=== PATIENT | female | born 2000 | race Caucasian/White ===

== ENCOUNTER → 2023-09-17 | Outpatient (CLI) | payer OTHER, SELFPAY ==
--- NOTE | 2023-09-17 15:20 | RAD_ITS ---
STUDY: X-RAY - LEFT FOOT CLINICAL: Female, 23 years old. Pain TECHNIQUE: 3 view(s) of the foot. COMPARISON: None. FINDINGS: Normal talus, calcaneus, and tarsal bones. Normal visualized subtalar, talonavicular, calcaneocuboid, tarsal and tarsometatarsal articulations. Normal metatarsi. Normal metatarsophalangeal joint of the great toe. There is a bipartite tibial sesamoid. Normal interphalangeal joint of the great toe. Normal phalanges of the great toe. Normal second through fifth metatarsophalangeal joints. Normal interphalangeal joints and phalanges of the lesser toes. Dorsal soft tissue swelling. RAD/Foot min 3 Views IMPRESSION: No acute abnormality is seen Dorsal soft tissue swelling. Electronically Signed: Laith Villanueva MD at 15:45 EDT ,
== END | disposition home or self-care (01) ==
LOC: MTRAD 15:17
PROVIDERS: Referring Provider Physician Assistant; Visit Provider Physician Assistant
DX: M79.672 Pain in left foot (principal)
CPT/HCPCS: 73630

== ENCOUNTER 2025-03-30 15:28 | Outpatient (CLI) | payer BC, SELFPAY ==
[2025-03-30 18:00] LABS: Hematocrit 39.7 % (37-47); Hemoglobin 13.1 g/dL (12.0-15.0); Immature Granulocytes Count 0.040 X10^3/uL (0.0-0.0); Mean Corp Hgb Conc 33.0 g/dL (32-36); Mean Corpuscular Volume 83.4 fL (81-99); Mean Platelet Vol. 9.6 fl (6.2-12.0); NRBC Flagged by Analyzer 0 % (0-5); Platelet Count 407 K/mm3 (150-450); RBC Distribution Width CV 13.1 % (11.6-14.6); RBC Distribution Width SD 39.7 fl (35.1-43.9); Red Blood Count 4.76 M/mm3 (4.2-5.4); White Blood Count 9.3 K/mm3 (4.4-11.0)
[2025-03-30 18:34] LABS: AST(SGOT) 16 U/L (<=31); Alanine Aminotransfer ALT/SGPT 18 U/L (<=34); Albumin, Serum 4.4 g/dL (3.5-5.0); Alkaline Phosphatase 56 U/L (35-104); Anion Gap 11 (5-15); BUN 15 mg/dL (4-19); BUN/Creat Ratio 16.5 RATIO (10-20); Calcium,Total 9.7 mg/dL (7.6-11.0); Carbon Dioxide 25.3 mmol/L (21.0-32.0); Chloride 105 mmol/L (98-108); Cholesterol 224 mg/dL (<=190); Globulin 2.9 g/dL (2.2-4.2); Glucose 92 mg/dL (70-99); Low Density Lipoprotein Calc. 125 mg/dL; Potassium 3.8 mmol/L (3.3-5.1); Triglycerides 280 mg/dL; Very Low Density Lipoprotein 56 mg/dL (5-40); Vitamin D,25 Hydroxy 13.4 ng/mL (30-100); cholesterol:hdl ratio screen 4.49
--- OUTSIDE RECORDS SUMMARY | 2025-03-30 19:12 | XMS RPT_ITS | CCD ---
Author Organization [facility] Inform ion Partnership ADULT MANAGER [facility] Care Team Providers Care Food Preparation Worker Name Role Phone FINA GOMEZ Attending Unavailable FINA GOMEZ Attending Unavailable FINA GOMEZ Referring Unavailable Roof CONCRETE BLOCK PLANT SUPERVISOR, CONCRETE BLOCK PLANT SUPERVISOR-C Allan eMndoza Attending Provider DELL Young Attending Provider Robbin Young Attending Unavailable Roof CONCRETE BLOCK PLANT SUPERVISORAllan Attending Unavailable Robbin Young Referring Unavailable Care Physician, No Primary Primary Care Unava ilable Robbin Young Attending Unavailable Care Physician, No Primary Primary Care Unava ilable Care Physician, No Primary Referring Unava ilable Robbin Young Attending Unavailable Allergies Allergy Classification Reported Allergen(s) Allergy Type Date of Onset Reaction(s) Facility (1 source) Amoxicillin Drug Allergy 09-17-2023 Nausea [facility] (1 source) Minocycline Drug Allergy 09-17-2023 Swelling [facility] (1 source) Amoxicillin Drug Allergy 09-17-2023 [facility] Repository (1 source) Minocycline Drug Allergy 09-17-2023 [facility] Repository Medications Current Medications Medication Drug Class(es) Dates Sig (Normalized) Sig (Original) cyclobenzaprine hydrochloride 5 mg oral tablet (1 source) Muscle Relaxant Start: 07-16-2023 take 10 mg by mouth three times daily as needed Cyclobenzaprine Active 10 MG PO THREE TIMES A DAY July 16, 2023 1:00am May take up to 10mg PO TID PRN Problems Active Problems Problem Classification Problem Date Documented Da te Episodic/Chronic Other connective tissue disease (1 source) Increased muscle tone; Translations: [Other specified disorders of muscle] 07-16-2023 Episodic Other connective tissue disease (1 source) Pain in left foot; Translations: [Pain in left foot] Onset: 10-24-2023 Episodic Residual codes; unclassified (1 source) Pain, unspecified; Translations: [Pain, unspecified] Onset: 10-05-2023 Episodic Sprains and strains (3 sources) Sprain of left foot; Translations: [Unspecified sprain of left foot, initial encounter] Onset: 11-01-2023 09-17-2023 Episodic Unclassified (1 source) Contact with and (suspected) exposure to covid-19; Translations: [Contact with and (suspected) exposure to covid-19] Onset: 01-08-2021 Past or Other Problems Problem Classification Problem Date Documented Da te Episodic/Chronic Other connective tissue disease (2 sources) Other specified disorders of muscle; Translations: [Unspecified disorder of muscle, ligament, and fascia] Onset: 07-16-2023 07-16-2023 Episodic Other lower respiratory disease (1 source) Cough; Translations: [Cough] Onset: 01-08-2021 Episodic Results Test Name Value Interpretation Reference Range Facility Virtual Office Visiton 09-23 Virtual Office Visit [facility] [address] [place] [address] OFFICE VISIT Date of Service: 09/24/23 MR#: [id number] Acct: [id number] Patient: DARIEN JIMÉNEZ Rep #: [id number] : 2000 Provider: DELL Modi Age/Sex: 23/F Location: [facility] Status: Signed Intake Vital Signs 07/16/23 06:41 Height 5 ft Intake Visit Reasons: BWC F/U FOOT INJURY Chief Complaint: WC left foot Allergies minocycline Adverse Reaction (Severe, Verified 09/17/23 15:06) Swelling amoxicillin Adverse Reaction (Intermediate, Verified 09/17/23 15:06) Nausea PFSH Medical History (Updated 09/17/23 @ 15:12 by Robbin SHARPE PA) Sprain of left foot HPI HPI Chief Complaint: WC left foot Details: Patient was informed that today's visit charges, even if billed to insurance may still be the patient's responsibility to pay. DARIEN JIMÉNEZ, is a 23 F who presents to the office today for recheck, with patient noting she is essentially symptom-free and wished to be released without restrictions at this time. Exam Details: Details:: Exam was limited due to phone visit with no video. Coding Level of Care Code Level 1 Telephone Diagnoses Sprain of left foot S93.602A Assessment and Plan Assessment and Plan (1) Sprain of left foot: Status: Acute Plan: Released without restrictions as noted on today's [employer] 14. Follow-up in our clinic on an as-needed basis only. Patient states acknowledging understanding all the above. This note was generated with Powervationation software. It may contain incorrect words, spelling, and punctuation that were not noted in checking the note before signing. 09/24/23 1504 Date Robbin SHARPE Cosigner Signature: Date (if applicable) CC: Normal [facility] Foot min 3 Viewson 4 Foot min 3 Views [facility] [address] [place] [address] Foot min 3 Views MR#: [id number] Acct: [id number] Name: DARIEN JIMÉNEZ Rep #: [id number] : 2000 F 23 From: Laith tran MD PCP: Care Physician,No Primary Status: REG CLI Study: Foot min 3 Views Date of Exam: 09/17/23 Exam# [id number] Ordering Dr: Robbin Chaudhari [id number] STUDY: X-RAY - LEFT FOOT CLINICAL: Female, 23 years old. Pain TECHNIQUE: 3 view(s) of the foot. COMPARISON: None. FINDINGS: Normal talus, calcaneus, and tarsal bones. Normal visualized subtalar, talonavicular, calcaneocuboid, tarsal and tarsometatarsal articulations. Normal metatarsi. Normal metatarsophalangeal joint of the great toe. There is a bipartite tibial sesamoid. Normal interphalangeal joint of the great toe. Normal phalanges of the great toe. Normal second through fifth metatarsophalangeal joints. Normal interphalangeal joints and phalanges of the lesser toes. Dorsal soft tissue swelling. RAD/Foot min 3 Views IMPRESSION: No acute abnormality is seen Dorsal soft tissue swelling. Electronically Signed: Laith Villanueva MD at 15:45 EDT Reading Location ID and State: [facility] / [place] , Service support , CC: No Primary Care Physician; DELL Modi Tipple Oiler: Signed Normal [facility] Urgent Care Visit Reporton 0 09-17-2023 Urgent Care Visit Report [facility] [address], [address] [place] [address] OFFICE VISIT Date of Service: 09/17/23 MR#: [id number] Acct: [id number] Name: DARIEN JIMÉNEZ Rep #: [id number] : 2000 Provider: DELL Modi Age/Sex: 23/F Location: [facility] Status: Signed Intake Vital Signs 07/16/23 06:41 09/17/23 15:05 Height 5 ft Weight: 194 lb BMI 37.8 BP 118/76 108/72 Blood Pressure Location Lt brachial Lt brachial Position Sitting Sitting Respiration 12 16 Pulse 124 H 94 Pulse Source Monitor NIBP Temp 98.3 F 98.5 F Temp Source Temporal Temporal Pulse Oximetry (%) 100 100 Oxygen Delivery Method room air room air Intake Visit Reasons: L FOOT INJURY/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 Complaint: WC left foot Website Optimization Strategist Required: No Is patient in pain?: Yes Allergies minocycline Adverse Reaction (Severe, Verified 09/17/23 15:06) Swelling amoxicillin Adverse Reaction (Intermediate, Verified 09/17/23 15:06) Nausea Is last menstrual period known: No Post menopausal: No Patient : No [facility] Medical History (Updated 09/17/23 @ 15:12 by Robbin SHARPE, PA) Sprain of left foot HPI HPI Chief Complaint: WC left foot Details: DARIEN JIMÉNEZ, is a 23 F who presents to the office today for initial evaluation left foot dorsal pain status post work-related injury patient so states. Patient notes while at work tripping falling twisting left foot in the process on 09/09/2023, with prolonged walking only continuing to exacerbate moderate aching discomfort of the same. No left ankle complaints and no locking or giving way of the same. No etsf-arr-gsmlmmg products taken to assist. PMH NC. No other associated symptoms and no other alleviating/aggravating factors. ROS Const Constitutional: No other (As above) Exam Const General: cooperative, healthy appearing and no acute distress Orientation: alert, awake and oriented x3 Neck Neck: normal visual inspection, no lymphadenopathy, no meningeal signs and supple Resp Effort Inspection: normal respiratory effort and able to speak in complete sentences Cardio Rate: regular rate Pulses: radial pulses present Skin General: no rashes or lesions noted Neuro General: patient alert, patient awake, patient oriented x3 and gait normal Cognition: normal cognition Speech: speech normal Gait: normal gait Extrem Other: Left foot trace dorsal swelling appreciated Psych Appearance: grossly normal Mental Status: mental status grossly normal Mood: congruent mood Affect: normal affect Speech and Movement: speech and movement normal Attitude: cooperative Coding Level of Care Code Off vis,est,level 4 Diagnoses Sprain of left foot S93.602A Assessment and Plan Assessment and Plan (1) Sprain of left foot: Status: Acute Plan: Left foot radiographs taken today reveal no acute osseous pathology per my review, pending radiologist interpretation time patient discharged. No work restrictions per patient preference as noted on today's Synetiq 14. Rest, ice, elevate, Chapito wrap as dispensed/applied/instru cted today. Coea-gsj-tcewvdb ibuprofen as needed as instructed today. Follow-up in the now clinic in 1 week for reevaluation, sooner should symptoms only worsen or any other concerns develop; anticipate release then. Patient states acknowledging understanding all the above. This note was generated with Connectbright dictation software. It may contain incorrect words, spelling, and punctuation that were not noted in checking the note before signing. Orders: Orders Foot min 3 Views Today R52 - Pain, unspecified Clinical Quality Measures High Blood Pressure Screening/Follow Up High Blood Pressure follow-up Instructions: Recommended Blood Pressure Follow-Up Interventions: *Normal BP: No follow-up required for SBP < 120 mmHg and DBP < 80 mmHg: *Elevated BP: Patients with SBP of 120-129 mmHg and DBP < 80 mmHg: *Referral to Alternate/Primary Care Health Adjunct Art History Instructor OR * Follow-up with rescreen in 2 to 6 months AND recommend nonpharmacologic interventions * First Hypertensive BP Reading: Patients with one elevated reading of SBP >=130 mmHg OR DBP >= 80 mmHg: *Referral to Alternate/Primary Care Health Professional OR *Follow-up with rescreen in >1 day and < 4 weeks AND recommend nonpharmacologic interventions *Second Hypertensive BP Reading: *Second Hypertensive BP Reading:Patients with second elevated reading of SBP of 130-139 mmHg or DBP of 80-89 mmHg (and not SBP >=140 or DBP >=90): * Referral to Alternate/Primary Care Health Adjunct Art History Instructor OR *Nonpharmacological Intervention AND reassessment in 2-6 months AND an order for a laboratory test or ECG for hypertension *Second Hypertensive BP Reading: SBP >=140 or D (more content not included)... Normal [facility] Urgent Care Visit Reporton 0 07-16-2023 Urgent Care Visit Report [facility] [address], [address] [place] [address] OFFICE VISIT Date of Service: 07/16/23 MR#: [id number] Acct: [id number] Name: DARIEN JIMÉNEZ Rep #: [id number] : 2000 Provider: MARILEE cabrera Age/Sex: 22/F Location: [facility] Status: Signed Intake Vital Signs 07/16/23 06:41 07/16/23 06:50 Height 5 ft Weight: 194 lb BMI 37.8 BP 118/76 Blood Pressure Location Lt brachial Position Sitting Respiration 12 Pulse 124 H 86 Pulse Source Monitor Monitor Temp 98.3 F Temp Source Temporal Pulse Oximetry (%) 100 Oxygen Delivery Method room air Intake Visit Reasons: NECK STIFFNESS Allergies minocycline Adverse Reaction (Severe, Verified 07/16/23 06:42) Swelling amoxicillin Adverse Reaction (Intermediate, Verified 07/16/23 06:42) Nausea HPI HPI Details: DARIEN JIMÉNEZ, is a 22 F who presents to the office today for concerns regarding neck stiffness. This was noted this morning after reaching for her alarm clock. She heard something pop in her neck. She acknowledges a history of torticollis. She denies injury, recent infection, or starting new medications. ROS Const Constitutional: No chills, fatigue, fever(s) or weakness ENT ENT: Positive for neck pain Resp Respiratory: No shortness of breath Cardio Cardiology: No chest pain with exertion Gastro GI: No incontinent of stools Genitourinary-Female: No urinary incontinence Musc Musculoskeletal: Positive for limited range of motion, neck pain and stiffness (left neck); No back pain, muscle weakness, numbness, radiating pain into limb or tingling Neuro Neurology: No weakness, numbness or tingling Endo Endocrine: No fatigue Storm/Lymp Hematologic/Lymphatic: Positive for other (Denies cancer history or trauma. Denies IV drug use) Exam Const General: cooperative, healthy appearing, comfortable and no acute distress Chest Chest palpation inspection: normal inspection of the chest Resp Effort Inspection: normal respiratory effort, able to speak in complete sentences, symmetric chest movement, not labored, no retractions and no use of accessory muscles Auscultation: Bilateral: Clear to Auscultation Cardio Palpation: normal PMI Rate: regular rate Rhythm: regular rhythm Heart Sounds: S1 normal and S2 normal Musc Musculoskeletal: No joint tenderness, joint redness, joint warmth, decreased range of motion, spinal deformity or muscle weakness Cervical Spine: pain with cervical ROM, cervical ROM abnormal and other (pain when bending chin upwards and downwards along and neck flexion to left); No cervical ROM normal or Lhermitte's sign positive Neuro General: patient alert, patient awake and patient oriented x3 Coding Level of Care Code Off vis,new,level 3 Diagnoses Muscle tightness M62.89 Assessment and Plan Assessment and Plan (1) Muscle tightness: Status: Acute Plan: Her physical exam is encouraging. No red flags noted. Conservative management such as ibuprofen, Tylenol, rest, hydration, and heat were reviewed. Will add muscle relaxer to also assist at a low dose. She is not working today. Concerns for drowsiness reviewed. Concerning symptoms were reviewed with her in which she was asked to present to emergency monitor, return to office, or contact primary care provider for repeat evaluation. Medications: New cyclobenzaprine May take up to 10mg PO TID PRN 10 mg (2 x 5 mg) PO TID PRN 10 tabs 0RF muscle spasm 07/16/23 0655 Date Allan Dimitri CONCRETE BLOCK PLANT SUPERVISOR CONCRETE BLOCK PLANT SUPERVISOR-C Cosigner Signature: Date (if applicable) CC: Normal [facility] SARS-CoV, QL, PCRon 01-09-20 SARS-CoV, QL, PCR Not detected Normal Undetected [facility] Comment on above: Order Comment: Sympt omatic?->No Indications (select all that apply)->Asymptomatic - community/general population Was specimen collected by a [facility] steam flattener?->Yes NO KNOWN ALLERGIES Result Comment: Testing was performed using the Quidel Brooke Direct. Fact sheets for this Emergency Use Authorization (EUA) assay can be found at the following links: For Healthcare Providers: https://www.fda.gov/media/589612/download For Patients: https://www.fda.gov/media/732639/download Test Performed by: [facility],[address] [place] [address], Pneudraulic Systems Mechanic: Vikas Gil D.O.; CLIA#: [id number] Performed By: #### L [id number] #### [facility] [address] [place] [address] C. trachomatis/GC PCR Panel on GeneXperton 10-11-2020 C. trachomatis/GC PCR Panel on GeneXpert Reason for preventing automatic release->Other Is this specimen being sent to an external lab?->No Release to patient->Manual release only [id number]&Urine^^^Urine&Urin e C. trachomatis PCR on GeneXpert: NEGATIVE-Chlamydia trachomatis DNA: NOT DETECTED. Source: URINE Collected: 10/11/20 10:24 Site: Urine Received : 10/11/20 13:55 C. trachomatis PCR on GeneXpert FINAL 10/12/20 12:20 NEGATIVE-Chlamydia trachomatis DNA: NOT DETECTED. - GC PCR on GeneXpert FINAL 10/12/20 12:20 NEGATIVE-Neisseria gonorrhea DNA: NOT DETECTED. - Method: DNA detection by RT PCR on a GeneXpert analyzer. - NOTE: This Amplified DNA Assay should not be used for the evaluation of suspected sexual abuse or for other medico-legal indications. - Screening urine specimens for Chlamydia trachomatis and Neisseria gonorrhoeae using nucleic acid amplification is an accurate and sensitive method compared to standard techniques of detection of these pathogens. Because the pathogen is diluted in urine, it is somewhat less sensitive than a direct swab specimen evaluated by nucleic acid amplification techniques. Normal [facility] Comment on above: Performed By: #### C LATISHAG #### [place] [address] C. trachomatis/GC PCR Panel on GeneXperton 06-11-2020 C. trachomatis/GC PCR Panel on GeneXpert Is this specimen being sent to an external lab?->No [id number]&Urine-First Void^^^Urine&Urine C. trachomatis PCR on GeneXpert: NEGATIVE-Chlamydia trachomatis DNA: NOT DETECTED. Source: URNFV Collected: 06/11/20 09:03 Site: Urine Received : 06/11/20 15:46 C. trachomatis PCR on GeneXpert FINAL 06/13/20 12:04 NEGATIVE-Chlamydia trachomatis DNA: NOT DETECTED. - GC PCR on GeneXpert FINAL 06/13/20 12:04 NEGATIVE-Neisseria gonorrhea DNA: NOT DETECTED. - Method: DNA detection by RT PCR on a GeneXpert analyzer. - NOTE: This Amplified DNA Assay should not be used for the evaluation of suspected sexual abuse or for other medico-legal indications. - Screening urine specimens for Chlamydia trachomatis and Neisseria gonorrhoeae using nucleic acid amplification is an accurate and sensitive method compared to standard techniques of detection of these pathogens. Because the pathogen is diluted in urine, it is somewhat less sensitive than a direct swab specimen evaluated by nucleic acid amplification techniques. Normal [facility] Comment on above: Performed By: #### C TNG #### [address] [address] C. trachomatis/GC PCR Panel on GeneXperton 03-17-2020 C. trachomatis/GC PCR Panel on GeneXpert Is this specimen being sent to an external lab?->No [id number]&Urine-First Void^^^Urine&Urine C. trachomatis PCR on GeneXpert: POSITIVE-Chlamydia trachomatis DNA: DETECTED. Source: URNFV Collected: 03/17/20 15:29 Site: Urine Received : 03/17/20 20:09 C. trachomatis PCR on GeneXpert FINAL 03/18/20 14:02 POSITIVE-Chlamydia trachomatis DNA: DETECTED. - Comments: 1. In compliance with [facility] law, the results of this test have been reported to the [facility]. SNOMED= [id number] 2. A positive test result should be considered presumptive evidence of infection. Although specificity of this assay is high, the positive predictive value may be suboptimal in low prevalence populations (i.e., patients at low risk for infection). Positive results should be interpreted in conjunction with patient's risk profile and clinical symptoms. 3. This test should not be used as a test of cure since results may remain positive long after clinical cure. - NOTE: This Amplified DNA Assay should not be used for the evaluation of suspected sexual abuse or for other medico-legal indications. GC PCR on GeneXpert FINAL 03/18/20 14:02 NEGATIVE-Neisseria gonorrhea DNA: NOT DETECTED. - Method: DNA detection by RT PCR on a GeneXpert analyzer. - NOTE: This Amplified DNA Assay should not be used for the evaluation of suspected sexual abuse or for other medico-legal indications. - Screening urine specimens for Chlamydia trachomatis and Neisseria gonorrhoeae using nucleic acid amplification is an accurate and sensitive method compared to standard techniques of detection of these pathogens. Because the pathogen is diluted in urine, it is somewhat less sensitive than a direct swab specimen evaluated by nucleic acid amplification techniques. Normal [facility] Comment on above: Performed By: #### C TN #### [address] [address] Progress Noteon 03-17-2020 Roadability Machine Operator Authentication Interface Message Text Patient ID: Darien Jiménez is a 19 y.o. female. Her chief complaint(s) include: 19 YEAR WELL CHILD Assessment 1. Routine general medical examination at a health care facility 2. Need for vaccination 3. Encounter for other general counseling and advice on contraception 4. Routine screening for STI (sexually transmitted infection) Plan Darien was seen today for 19 year well child. Diagnoses and all orders for this visit: Routine general medical examination at a health care facility - PHQ9 Assessment With Score - Health Risk Assessment - CRAFFT Need for vaccination - HPV (Gardasil 9) Encounter for other general counseling and advice on contraception - POCT urine HCG - norgestimate-ethinyl estradiol (ORTHO-CYCLEN) 0.25-35 MG-MCG per tablet; Take 1 Tab by mouth daily Routine screening for STI (sexually transmitted infection) - C.trachomatis/GC PCR Panel Will start control for contraception now that patient is sexually active. Discussed OCPs vs. LARCs, and side effects of all. Patient prefers to start OCPs. Spent more than 50% of time counseling. Patient requests urine STD results be called to her cell (primary number in chart). Return in about 1 year (around 03/17/2021) for well check, 2 months for 2nd HPV, 6 months for 3rd HPV. Patient declines flu vaccine. Mom had declined HPV vaccine in the past, but allowed patient to make her own decision regarding this at last year's well. She declined then but asked for more information regarding this today and agreed to start the HPV series. Subjective She is unaccompanied. 19 YEAR WELL CHILD Home: Darien Jean-Baptiste lives apart from family (l[place] in an apartment with 3 roommates). Education: Darien Jean-Baptiste Is in jose year of college. (Doing mostly online classes through [employer], studying [employer] intelligence). Eating: Darien Jean-Baptiste eats regular meals including fruits and vegetables and eats breakfast. Activities & Sports: Darien Jean-Baptiste performs at least 1 hour of physical activity daily (walking around campus). Darien Jean-Baptiste does not have a job (plans to apply to [employer] over winter). Drugs: Darien Jean-Baptiste does not use tobacco, does not use drugs, does not use alcohol and does not vape. Safety: Darien Jean-Baptiste uses seat belt. Darien Jean-Baptiste does not use phone/text while driving. Sex: The patient has a sexual partner. The patient is interested in males. The patient has had sex. Typically, the patient uses condoms as current contraceptive method. (Sometimes). The patient has not had an STD. The patient's partner has had an STD: no. STD screening offered and completed. Darien Jean-Baptiste has previously been : No Suicidality: Darien Jean-Baptiste has no problems with sleep, has no depression, has no anxiety, does not have mood swings, has no suicidal ideation, has no homicidal ideation, does not have a psychiatrist and is not engaged in counseling. PHQ-9 Score: 3 Menstruation Last Menstrual period: LMP from Vitals Patient's last menstrual period was 03/09/2020.. Menstruation: regular periods Output Urine and Stool Pattern: Urine and Stool Pattern: Normal stool pattern, no constipation, normal urine pattern. Sleep Sleeping Difficulty: no difficulty sleeping Teen Anticipatory Guidance The following anticipatory guidance was reviewed during the visit: Nutrition: limit junk food/fast food and soft drinks. Social: avoid or limit screen time. Health: age appropriate dental care, age appropriate sleep habits, talk with trusted adult if feeling sad or nervous and learn to manage time and activities. Screenings Previous Vaccine Reactions: No. Life events information was reviewed-no referral needed Hearing Vision Concerns: Patient wears glasses or contact lenses. The caregiver has no concerns about the patient's hearing. The caregiver has no concerns about the patient's vision. Patient is being seen by literacy coach or veterinary anatomist. Contraception The patient is here today regarding a new prescription. status: not . The patient has a sexual partner. The patient is interested in males. The patient has had sex. The patient has 1 current sexual partners. Typically, the patient uses condoms as current contraceptive method. The patient states that their last sexual encounter was 1 day ago. The patient has not had an STD. The patient's partner has had an STD: no. STD screening offered and completed. The patient has reached menarche. Patient's last menstrual period was 03/09/2020. The patient describes their cycle as having: regularly. The patient has not had a blood clot in their legs or lungs. There is not a family history of blood clots in the legs or lungs. The patient has no history of . There is no cancer in the patient's history. The patient reports no stroke or heart attack. The patient has no history of migrai (more content not included)... 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 female. Her chief complaint(s) include: Pharyngitis (cough) and Ear Pain Assessment 1. Streptococcal sore throat Plan Darien was seen today for pharyngitis and ear pain. Diagnoses and all orders for this visit: Streptococcal sore throat - POCT Rapid Strep A Antigen - cephALEXin (KEFLEX) 500 MG capsule; Take 1 Cap (500 mg) by mouth 2 times daily for 10 days Return if symptoms worsen or fail to improve. Subjective She is unaccompanied. Pharyngitis The onset has been gradual. The duration has been 1 week. The pattern is persistent. The course is gradually worsening. Characterized by pain with swallowing and discomfort. Aggravated by eating and drinking. Symptoms are relieved by nothing. The patient's symptoms have included fatigue, a fever, decreased appetite, congestion, swollen lymph nodes and cough (dry). The patient's symptoms have included no chills, no malaise, no dizziness, no fussiness, no decreased fluid intake, no difficulty sleeping, no headaches, no eye discharge, no eye redness, no itchy eyes, no eye watering, no ear pain, no rhinorrhea, no sneezing, no neck pain, no neck stiffness, no chest pain, no difficulty breathing, no shortness of breath, no wheezing, no stridor, no abdominal pain, no nausea, no vomiting, no diarrhea, no decreased urination, no muscle aches, no joint pain and no rash. The patient has had a maximum temperature of 100.3 degrees. The temperature was taken orally. The patient has been exposed to no sick contacts. The patient's home management has included nothing. Primary Care Review of Systems Objective Vital Signs 02/23/20 1441 Temp: 37.9 C (100.2 F) TempSrc: Temporal Weight: 79 kg There is no height or weight on file to calculate BMI. Physical Exam Constitutional: She appears well. She is active. No distress. HENT: Head: Atraumatic. Ears: Right Ear: Tympanic membrane normal. Tympanic membrane is not erythematous. No purulent effusion and no serous effusion is present. Left Ear: Tympanic membrane normal. Tympanic membrane is not erythematous. No purulent effusion and no serous effusion. Nose: No nasal discharge. Mouth/Throat: Mucous membranes are moist. Pharynx erythema present. Tonsils are 2+ on the right. Tonsils are 2+ on the left. Eyes: Conjunctivae are normal. Cardiovascular: Normal rate and regular rhythm. Heart murmur not heard. Pulmonary/Chest: Effort normal and breath sounds normal. There is normal air entry. No stridor. No respiratory distress. Air movement is not decreased. She has no wheezes. She has no rhonchi. She has no rales. Exhibits no retraction. Abdominal: Soft. Bowel sounds are normal. There is no hepatosplenomegaly. There is no abdominal tenderness. Lymphadenopathy: Right anterior cervical adenopathy present. Left anterior cervical adenopathy present. Neurological: She is alert. Last Result POCT Rapid Strep A Antigen Collection Time: 02/23/20 3:05 PM Result Value Ref Range Strep A Antigen Positive (A) None Detected Yellow Solution *Present Red Control Line *Present Clear Background *Present Lot Number [id number] Normal [facility] Vital Signs Date Time Vital Sign Value Performing Clinician Faci lity 09-17-2023 15:05-0400 Body temperature 98.5 [degF] [employer] Allan Mosley [employer]PER[employer]OR Work Phone: [facility] 09-17-2023 15:05-0400 Diastolic blood pressure 72 mm[Hg] [employer]-C Allan Mosley [employer]CR[employer] SUPERVISOR Work Phone: [facility] 09-17-2023 15:05-0400 Heart rate 94 /min [employer] Allan Mosley [employer]CR[employer] SUPER[employer]OR Work Phone: [facility] 09-17-2023 15:05-0400 Respiratory rate 16 /min [employer]-C Allan Mosley [employer]CR[employer] SUPER[employer]OR Work Phone: [facility] 09-17-2023 15:05-0400 SaO2% (BldA) [Mass fraction] 100 % [employer]PER[employer]-C Allan Mosley [employer]CR[employer]E [employer] SUPERVISOR Work Phone: [facility] 09-17-2023 15:05-0400 Systolic blood pressure 108 mm[Hg] [employer]PER[employer]-C Allan Mosley [employer]CR[employer]E [employer] SUPERVISOR Work Phone: [facility] 07-16-2023 06:50-0500 Heart rate 86 /min [employer]PER[employer]-C Allan Mosley [employer]CR[employer]E [employer] SUPERVISOR Work Phone: [facility] 07-16-2023 06:41-0500 Body height 152.4 cm [employer] Allan Mosley [employer]CR[employer] SUPER[employer]OR Work Phone: [facility] 07-16-2023 06:41-0500 Body mass index (BMI) [Ratio] 37.8 kg/m2 [employer] Allan Mosley [employer]CR[employer] SUPER[employer]OR Work Phone: [facility] 07-16-2023 06:41-0500 Body temperature 98.3 [degF] [employer]PER[employer]-C Allan Mosley [employer]CR[employer]E [employer] SUPER[employer]OR Work Phone: [facility] 07-16-2023 06:41-0500 Body weight 87.99 kg [employer]CR[employer]E [employer]PER[employer] Allan Mosley [employer]CR[employer]E [employer] SUPERVISOR Work Phone: [facility] 07-16-2023 06:41-0500 Diastolic blood pressure 76 mm[Hg] [employer]PER[employer]-C Allan Mosley [employer]CR[employer]E [employer] SUPERVISOR Work Phone: [facility] 07-16-2023 06:41-0500 Respiratory rate 12 /min [employer] Allan Mosley [employer]CR[employer]E [employer] SUPERVISOR Work Phone: [facility] 07-16-2023 06:41-0500 SaO2% (BldA) [Mass fraction] 100 % [employer]PER[employer]-C Allan Mosley [employer]CR[employer]E [employer] SUPERVISOR Work Phone: [facility] 07-16-2023 06:41-0500 Systolic blood pressure 118 mm[Hg] [employer] SUPER[employer]-C Allan Mosley [employer]CR[employer]E [employer] SUPERVISOR Work Phone: [facility] Encounters Encounter Date Encounter Type Care Provider Facility Start: 09-24-2023 End: 09-24-2023 ambulatory No Primary Care Physician Facility:[facility] Start: 09-17-2023 End: 09-17-2023 ambulatory Robbin SHARPE [facility] Work Phone: Start: 09-17-2023 End: 09-17-2023 Patient encounter procedure [employer] Allan Mosley [employer] SUPER[employer]OR Work Phone: [facility] Work Phone: Start: 09-17-2023 End: 09-17-2023 ambulatory Robbin SHARPE Facility:[facility] Start: 07-16-2023 End: 07-16-2023 Patient encounter procedure [employer]PER[employer]OR-Sachi Mosley [employer] SUPER[employer]OR Work Phone: [facility] Work Phone: Start: 07-16-2023 End: 07-16-2023 ambulatory Allan Mosley [employer] SUPER[employer]OR Facility:[facility] Start: 01-08-2021 End: 01-09-2021 ambulatory FINA GOMEZ [facility] Start: 01-07-2021 ambulatory FINA GOMEZ [facility] Procedures Date Procedure Procedure Detail Performing Clinician Start: 09-17-2023 X-ray of both feet [employer] SUPER[employer]OR-Sachi Mosley [employer] SUPERVISOR Work Phone: Payers Date Payer Category Payer Unknown [id number] 2023 Unknown [id number] 2023 Unknown [id number] 2023 Self-pay 2023 Unknown [id number] [employer] [place] e ( and others) [id number] Unknown [id number] Unknown [id number] Unknown [id number] Unknown [id number] Social History Date Type [facility]ail [facility] Work Phone: Start: 2000 Sex Assigned At Female [facility] Evaluation note Note Date & Type Note Facility Evaluation note Diagnosis Onset Date Muscle tightness acute Sprain of left foot acute [facility] Work Phone: Summary Purpose Family History No Family History Records FoundNo Family History Records FoundNo Family History Records Found Advance Directives No Advanced Directives Records FoundNo Advanced Directives Records FoundNo Advanced Directives Records Found Chief Complaint and Reason for Visit Chief Complaint NECK STIFFNESS L FOOT INJURY/POST FALL/[place] [employer] [place] Reason for Visit Muscle tightness Sprain of left foot Additional Source Comments INFORMATION SOURCE (unrecogn ized section and content) DATE CREATED AUTHOR 10/15/2020 [facility] DATE CREATED AUTHOR AUTHOR'S ORGANIZ ATION 07/05/2021 [facility] DATE CREATED AUTHOR AUTHOR'S ORGANIZ ATION 11/02/2023 [facility] Care Teams (unrecognized sec tion and content) Team Status: Active Member Role Status Dates No Primary Care Physician Primary Care Provider Active Team Status: Inactive Member Role Status Dates Allan Mosley [employer]CR[employer] SUPERVISOR, [employer] SUPER[employer]OR-C Attending Provider Active Team Status: Inactive Member Role Status Dates DELL Soto Attending Provider Active Team Status: Inactive Member Role Status Dates No Primary Care Physician Primary Care Provider Active DELL Soto Attending Provider, Referring Pr ovider Active Goals (unrecognized section and content) Goals may be documented in a n alternate section FOR RECORDS PERTAINING TO PATIENTS WHO ARE OR HAVE BEEN ENROLLED IN A CHEMICAL DEPENDENCY/SUBSTANCEABUSE PROGRAM, SOME INFORMATION MAY BE OMITTED. This clinical summary was aggregated from multiple sources. Caution should be exercised in using it in the provision of clinical care. This summary normalizes information from multiple sources, and as a consequence, information in this document may materially change the coding, format and clinical context of patient data. In addition, data may be omitted in some cases. CLINICAL DECISIONS SHOULD BE BASED ON THE PRIMARY CLINICAL RECORDS. [facility]. provides no warranty or guarantee of the accuracy or completeness of information in this document.
[2025-04-03 09:08] LABS: Bluegrass, Kentucky <0.10 kU/L (Class 0); Cat Hair/Dander, Standard <0.10 kU/L (Class 0); Cedar, Mountain <0.10 kU/L (Class 0); Cockroach, American <0.10 kU/L (Class 0); Dog Epithelia <0.10 kU/L (Class 0); Elm, American White <0.10 kU/L (Class 0); Hazelnut Tree <0.10 kU/L (Class 0); Hickory, White <0.10 kU/L (Class 0); Mulberry, White <0.10 kU/L (Class 0); Oak, White <0.10 kU/L (Class 0); Pigweed, Rough <0.10 kU/L (Class 0); Plantain, English <0.10 kU/L (Class 0); Ragweed, Short/Common <0.10 kU/L (Class 0); Sheep Sorrel(Dock) <0.10 kU/L (Class 0); Sycamore, American <0.10 kU/L (Class 0)
== END 2025-03-30 23:59 | disposition home or self-care (01) ==
LOC: MTLAB 15:31
PROVIDERS: PCP Family Medicine; Referring Provider Family Medicine; Visit Provider Family Medicine
DX: Z13.1 Encounter for screening for diabetes mellitus (principal); Z13.220 Encounter for screening for lipoid disorders; Z91.09 Other allergy status, other than to drugs and biological substances; R53.83 Other fatigue
CPT/HCPCS: 36415; 80053; 80061; 82306; 83036; 84443; 85025; 86003